=== PATIENT | female | born 2000 | race Caucasian/White ===

== ENCOUNTER 2019-11-01 13:33 | Emergency (ER) | payer OTHER ==
[~2019-11-01] VITALS: Ht 160 cm; Wt 95.3 kg
[2019-11-01 13:51] VITALS: BP 41/92; Ht 160 cm; Wt 95.3 kg
== END 2019-11-01 14:25 | disposition other institution (70) ==
LOC: ED 13:33
DX: Z13.89 Encounter for screening for other disorder (principal)

== ENCOUNTER 2019-11-01 13:33 | Emergency (ER) | payer OTHER | END 2019-11-01 14:25 | disposition other institution (70) | LOC: ED 13:33 | DX: Z02.89 Encounter for other administrative examinations (principal) ==